=== PATIENT | male | born 1945 | race Caucasian/White ===

== ENCOUNTER 2016-06-29 12:33 | Inpatient (IN) | payer OTHER ==
--- NOTE | ~2016-06-29 | HP ---
History And Physical [place] [address] [facility] [place]. [address] NAME: GRETTA TOUSSAINT : 49 STATUS : ADM Lyla PAT#: [id number] AGE: 70 ADM/REG DATE : 06/29/16 MR#: [id number] REPORT SERV DATE: 06/29/16 DICTATED BY: LION SANON DATE: 06/29/16 REPORT STATUS : Draft TRANSCRIBED BY: MODL DATE: 06/29/16 DATE OF ADMISSION: 06/29/2016 REASON FOR ADMISSION: NSTEMI. HISTORY OF PRESENT ILLNESS: Mr. Toussaint is a pleasant 70-year-old gentleman with a history of coronary artery disease, status post Cypher stent to left circumflex artery (05/29/2006), history of OH (2002), ischemic cardiomyopathy, hypertension, hyperlipidemia, diabetes, COPD, and peripheral vascular disease, status post multiple stents (details unknown, done at outside hospital), who presents to [facility] today with complaints of chest pain as of yesterday evening. He states that he was in his usual state of health up until yesterday evening when at home at rest, he started to feel left-sided chest pain that radiated down his left arm. He has continued on and off over the course of the night and he eventually took 1 sublingual nitroglycerin with some relief. By this morning, his pain returned, prompting him to come in to [facility] for further evaluation and care. He otherwise has no other complaints. He notes that he used to see Dr. Mark, greater than 5 to 6 years ago but was lost to follow up. He was unaware that he was supposed to continue seeing his drinking water technician. He otherwise has continued to see a physician for peripheral artery disease and general physician for primary care management. ALLERGIES: CODEINE. FAMILY HISTORY: Significant for DVT in his mother as well as prostate cancer in his father. There is no history of heart disease that he is aware of. SOCIAL HISTORY: The patient lives at home with his and functions independently under normal circumstances. He limits his daily day-to-day activities as he gets short of breath and fatigued quickly. He denies drinking alcohol, currently smoking, or doing drugs. He is a former tobacco user. HOME MEDICATIONS: 1. Aspirin 81 mg p.o. daily. 2. Enalapril 5 mg p.o. at bedtime. 3. Flonase. 4. Advair. 5. Glucophage. 6. Nitrostat. 7. Pravastatin 20 mg p.o. at bedtime. 8. Januvia. 9. Spiriva. PHYSICAL EXAMINATION: VITAL SIGNS: Blood pressure 132/82, pulse 78, and temperature 98.2. GENERAL: Well developed, well nourished, no acute distress. NEUROLOGIC: Awake, alert and oriented x3; no focal deficits, appropriate mood. HEENT: Moist mucous membranes, anicteric sclerae, no nasal discharge. History And Physical [address] [address] NAME: GRETTA TOUSSAINT : 49 STATUS : ADM Lyla PAT#: [id number] AGE: 70 ADM/REG DATE : 06/29/16 MR#: [id number] REPORT SERV DATE: 06/29/16 DICTATED BY: LION SANON DATE: 06/29/16 REPORT STATUS : Draft TRANSCRIBED BY: MARIA G DATE: 06/29/16 NECK: No JVD, no carotid bruit. LUNGS: Clear to auscultation bilaterally, no wheezes, rales or rhonchi. CARDIAC: Regular rate and rhythm. A 2/6 systolic murmur at the left sternal border, otherwise, no rubs or gallops. ABDOMEN: Soft, non-tender, non-distended, no rebound or guarding. EXTREMITIES: No pitting edema, normal distal pulses. SKIN: Warm, dry and intact; no rash. PERTINENT TEST FINDINGS: EKG from admission shows sinus rhythm. Good R-wave progression. Normal intervals. No ischemic changes and no pathologic Q-waves. Troponins is 4.1, otherwise labs not remarkable. Platelets 94, creatinine 1.0, BUN 12, and potassium 4.4. IMPRESSION AND PLAN: Mr. Toussaint is a pleasant 70-year-old gentleman with a history significant for cardiovascular disease including CAD, status post Cypher stent to the left circumflex (2006) and peripheral vascular disease, status post multiple stents at an outside hospital (details unknown) who was lost to follow up in [facility]iology [facility] over the past several years, presenting today with left-sided chest pains and left arm pains relieved with nitroglycerin, found to have a troponin of 4 in the setting of an NSTEMI. I have discussed with him the plan to proceed with coronary angiography with possible PCI as well as the risks and benefits thereof. These include OH, , stroke, kidney injury. The patient voiced understanding and is amenable with proceeding with coronary angiography with possible intervention. Otherwise ACS order set, aspirin, statin, and beta-manisha will be initiated as appropriate. An echocardiogram will be checked. I will follow up on his lipids as well as optimize his medical regimen going forward. I have made him aware of the fact that he needs to be on a full cardiovascular medical regimen as well as see a drinking water technician regularly going forward. JERONIMO/MODL Lion Sanon MD / [id number] CC: MD Ulices Willett M.D.
--- NOTE | ~2016-06-29 | OP ---
Record Of Operation [facility] [address] [place]. [address] NAME: GRETTA TOUSSAINT : 49 STATUS : DIS IN PAT#: [id number] AGE: 71 ADM/REG DATE : 06/29/16 MR#: [id number] REPORT SERV DATE: 07/10/16 DICTATED BY: MANSOOR MARC DATE: 07/10/16 REPORT STATUS : Draft TRANSCRIBED BY: MODL DATE: 07/10/16 DATE OF PROCEDURE: 06/29/2016 PREOPERATIVE DIAGNOSIS: Coronary artery disease. POSTOPERATIVE DIAGNOSIS: Coronary artery disease. PROCEDURE PERFORMED: 1. Coronary revascularization by Dr. New Martinez. 2. Retrieval of routine catheter via right radial access. ANESTHESIA: Local MAC with propofol. COMPLICATIONS: None. INDICATION FOR PROCEDURE: Mr. Toussaint is a 70-year-old gentleman first seen as an intraoperative consult for a retained catheter within the coronary sinus. I was consulted for assistance in removal of catheter. Details of my portion of the procedure. Within the catheterization lab, he is status post reconstruction of the coronary vasculature with a guiding sheath that was retained in the coronary sinus. In agreeance with Dr. Martinez, temporary heavy MAC anesthesia was induced with propofol medication and the catheter was then readjusted. It appeared that the catheter had kinked at the radial sheath level and by removing the sheath back about a quarter of an inch, the guiding sheath could be retrieved and broken free. With this free and after the propofol anesthesia, the catheter was straightened and then easily brought from the patient. The radial sheath was then removed. There was a pulse at the radial wrist level and a radial compression band was then placed. The patient tolerated the procedure well. Please see Dr. New Martinez's notes for additional details regarding the coronary aspect of the procedure and the retrieval of the catheter. RAGHU/MARIA G Mansoor Marc M.D. / [id number] CC: MD Ulices Willett M.D.
[2016-06-29 11:19] LABS: BASOPHILS 0.5 %; BASOPHILS ABSOLUTE 0.05 10/3/uL (0.0-0.16); EOSINOPHILS 1.1 %; EOSINOPHILS ABSOLUTE 0.11 10/3/uL (0.0-0.53); ER CBC TAT 0 Hrs 03 Mins; HEMATOCRIT 53.9 % (40.0-51.0); IMMATURE GRANULOCYTES 0.2 %; IMMATURE GRANULOCYTES ABSOLUTE 0.02 10/3/uL (0.0-0.11); LYMPHOCYTES 22.6 %; LYMPHOCYTES ABSOLUTE 2.24 10/3/uL (0.67-4.30); MANUAL DIFF NO %; MEAN CORPUS HGB CONC 35.3 g/dL (32.0-36.0); MEAN CORPUSCULAR HEMOGLOB 31.6 pg (26.0-34.0); MEAN CORPUSCULAR VOLUME 89.5 fL (80-100); MEAN PLATELET VOLUME 10.2 fL (9.2-13.0); MONOCYTES 8.8 %; MONOCYTES ABSOLUTE 0.87 10/3/uL (0.21-1.20); NEUTROPHILS 66.8 %; PLATELET COUNT 94 10/3/uL (150-400); RBC DISTRIBUTION WIDTH 12.7 % (12.0-16.0); RED CELL COUNT 6.02 10/6/uL (4.7-6.1); WHITE BLOOD CELLS 9.9 10/3/uL (4.5-10.5)
[2016-06-29 11:35] LABS: BUN (BLOOD UREA NITROGEN) 12 MG/DL (6-23); CHEST PAIN PROFILE TAT 0 Hrs 19 Mins; CHLORIDE, SERUM 102 MMOL/L (96-112); CO2 (CARBON DIOXIDE) 24 MMOL/L (24-34); CREATININE 1.02 MG/DL (0.70-1.30); GFR AFRICAN AMERICAN 87 ML/MIN (>=60); GFR NON AFRICAN AMERICAN 75 ML/MIN (>=60); GLUCOSE, SERUM 241 MG/DL (60-99); POTASSIUM, SERUM 4.4 MMOL/L (3.5-5.3); SODIUM, SERUM 137 MMOL/L (135-148); TROPONIN I 4.13 NG/ML (<0.05)
[2016-06-29 11:38] LABS: INTERNATIONAL NORMAL RATI 1.1 UNITS (-); PARTIAL THROMBO TIME 24.4 SEC (22.5-37.2); PROTIME (NOT ORD) 14.2 SEC (12.0-14.5)
[~2016-06-29 12:33] MED LIST: ADVAIR250 INH; ASAB PO; FLONASE NAS; GLUCOPHXR PO; JANUVIA100 MG PO; NITROSTAT0.4 MG SL; PRAVAC PO; SPIRIVA INH; VASOTEC5 PO
[2016-06-29 13:45] LABS: CHOL/HDL RATIO(NOT ORDER) 3.9 (0-5); CHOLESTEROL 131 MG/DL (< 200); CK-MB 14.8 NG/ML; CKMB INDEX (NOT ORD) 6.3; CPK 236 U/L (0-200); HDL CHOLESTEROL 34 MG/DL (> 39); LDL CHOLESTEROL 75 MG/DL (< 130); NON-HDL CHOLESTEROL 97 MG/DL (< 160); TRIGLYCERIDE 112 MG/DL (< 150)
[2016-06-30 10:01] LABS: CHOL/HDL RATIO(NOT ORDER) 3.1 (0-5)
[2016-06-30] MEDS ORDERED: PLAVIX PO (12:24)
[2016-06-30] MEDS ORDERED: LIPITOR40 PO (12:24)
[2016-06-30] MEDS ORDERED: LOP25 PO (12:25)
[2016-06-30] MEDS ORDERED: IMDUR30 PO (12:25)
== END 2016-06-30 15:30 | disposition home or self-care (01) | DRG 247 ==
LOC: ER 12:33 → SSU1 12:51 → 7NO 13:13 → SSU1 17:13
PROVIDERS: Physician Assistant; Student in an Organized Health Care Education/Training Program
PROC: 027035Z Dilation of Coronary Artery, One Artery with Two Drug-eluting Intraluminal Devices, Percutaneous Approach (ICD-10-PCS; principal; 2016-06-29)
PROC: 4A023N7 Measurement of Cardiac Sampling and Pressure, Left Heart, Percutaneous Approach (ICD-10-PCS; 2016-06-29)
PROC: B2151ZZ Fluoroscopy of Left Heart using Low Osmolar Contrast (ICD-10-PCS; 2016-06-29)
PROC: B2111ZZ Fluoroscopy of Multiple Coronary Arteries using Low Osmolar Contrast (ICD-10-PCS; 2016-06-29)
DX: I21.4 Non-ST elevation (NSTEMI) myocardial infarction (principal); J44.9 Chronic obstructive pulmonary disease, unspecified; I10 Essential (primary) hypertension; I25.10 Atherosclerotic heart disease of native coronary artery without angina pectoris; I25.5 Ischemic cardiomyopathy; E78.5 Hyperlipidemia, unspecified; G47.33 Obstructive sleep apnea (adult) (pediatric); E11.9 Type 2 diabetes mellitus without complications; I73.9 Peripheral vascular disease, unspecified; I25.2 Old myocardial infarction; Z95.5 Presence of coronary angioplasty implant and graft; Z87.898 Personal history of other specified conditions; Z80.42 Family history of malignant neoplasm of prostate; Z87.891 Personal history of nicotine dependence
CPT/HCPCS: 71020; 80048; 80061; 82550; 82553; 82962; 83735; 84484; 85025; 85347; 85610; 85730; 93005; 93458; 94640; 99152; 99153; 99285; A9270-GY; C1725; C1769; C1874; C1887; C1894; C8929; C9600; J2250; J3010; Q9957; Q9966; Q9967